=== PATIENT | female | born 1950 | race Caucasian/White ===

== ENCOUNTER → 2017-07-07 | Outpatient (CLI) | payer MEDICARE, OTHER | END | disposition home or self-care (01) | LOC: GMAL 10:46 | PROVIDERS: ATTEND Family Medicine | DX: D51.3 Other dietary vitamin B12 deficiency anemia (principal); Z79.899 Other long term (current) drug therapy; E55.9 Vitamin D deficiency, unspecified ==

== ENCOUNTER → 2017-09-16 | Outpatient (CLI) | payer MEDICARE, OTHER ==
--- NOTE | 2017-09-17 12:08 | MAM ---
EXAM DESCRIPTION: 3D Screening BILATERAL CLINICAL HISTORY: 67 yearsFemaleSCREENING . No complaints. Mother with ovarian cancer. Remote family history of ovarian cancer. Postmenopausal. Has taken HRT 5 or more years ago. Bilateral breast augmentation. COMPARISON: 2-D digital screening bilateral studies 07/27/2016 and 06/03/2015. No prior reports available. Reports from each prior examination also reviewed Report from prior examination reviewed. TECHNIQUE: Bilateral digital screening. CC and MLO projection full-field, 2-D images. Bilateral Demi implant displacement images, CC and MLO full-field projections, 3-D tomosynthesis. CAD not utilized. FINDINGS: The breast parenchymal density pattern is: Heterogeneously dense breast tissue, which may obscure small masses. No skin thickening or nipple retraction bilaterally. Bilateral solitary microcalcifications. Bilateral axillary lymph nodes. Bilateral silicon implants are retroglandular. Some irregularity of the anterior capsules were visualized, stable since the prior study. No focal, stellate mass or density no focal asymmetry, and no suspicious microcalcifications bilaterally Stable mammograms compared to prior study, taking into account differences in mammographic technique. IMPRESSION: BI-RADS CATEGORY: 2 - BENIGN FINDINGS. FOLLOW UP: Routine digital bilateral screening, one year interval from August 2017. Written communication explaining the IMPRESSION and follow-up, will be mailed to the patient and referring health care provider. According to the [employer], yearly mammograms are recommended starting at age 40 and continuing as long as a woman is in good health. Any breast change noted on a breast self-exam should be reported promptly to the patient's healthcare provider. Breast MRI is recommended for women with an approximately 20-25% or greater lifetime risk of breast cancer, including women with a strong family history of breast or ovarian cancer and women who have been treated for Hodgkin's disease. A negative mammographic report should not delay tissue diagnosis in patients with significant clinical history or physical findings. Extremely dense breast tissue limits the sensitivity of digital mammography. Electronically signed by: Edi Sanchez MD 09/17/2017 12:07 PM [facility]
--- NOTE | 2017-09-19 15:46 | US ---
EXAM DESCRIPTION: Carotid Duplex CLINICAL HISTORY: 67 years, Female, CAROTID BRUIT COMPARISON: None. FINDINGS: RIGHT: No significant atherosclerotic plaque. The common carotid, proximal, mid and distal internal carotid and external carotid arteries are patent without elevated systolic velocities. Vertebral artery flow is antegrade. LEFT: No significant atherosclerotic plaque. The common carotid, proximal, mid and distal internal carotid and external carotid arteries are patent without elevated systolic velocities. Vertebral artery flow is antegrade. IMPRESSION: No hemodynamically significant stenosis. Antegrade flow in the vertebral arteries. Electronically signed by: Edi Champagne 09/19/2017 3:44 PM [facility]
--- NOTE | 2017-09-19 16:14 | US ---
EXAM DESCRIPTION: Thyroid CLINICAL HISTORY: NODULE COMPARISON: None. FINDINGS: Sonography was performed of the thyroid gland. The right lobe measures 60 x 22 x 18 mm and the left lobe 59 x 15 x 16 mm. The isthmus measures 2 mm. In the mid right lobe is 22 x 18 x 20 mm nodule. There is a 13 x 12 x 11 mm nodule and a 10 x 8 x 10 mm nodule in the mid left lobe. The nodules are heterogeneous and not calcified and not hypervascular. The thyroid gland is diffusely heterogeneous. No focal calcification is seen. No focus of hypervascularity is identified. IMPRESSION: Diffusely heterogeneous thyroid gland with nodular heterogeneous lesions as described. Electronically signed by: Edi Champagne 09/19/2017 4:13 PM DATA INPUT CLERK
== END ==
LOC: US 09:08
PROVIDERS: ATTEND Family Medicine
DX: Z12.31 Encounter for screening mammogram for malignant neoplasm of breast (principal); R09.89 Other specified symptoms and signs involving the circulatory and respiratory systems; E04.1 Nontoxic single thyroid nodule
CPT/HCPCS: 76536; 77063; 93880; G0202

== ENCOUNTER → 2017-09-30 | Outpatient (CLI) | payer MEDICARE, OTHER ==
--- NOTE | 2017-09-30 16:32 | US ---
EXAM DESCRIPTION: Biopsy of Thyroid: Ultrasound. CLINICAL HISTORY: 67 yearsFemale COMPARISON: Ultrasound of the thyroid 09/16/2017. TECHNIQUE: Procedure was explained to the patient with risks and benefits. The patient gave verbal and written consent. Sterile preparation draping. 1% xylocaine dermal anesthetic. Sterile ultrasound guidance. A total of 4 passes into the right thyroid nodule; 3 needle samplings with a separate 1.5 inch, 25-gauge needle per sample, and 1 aspiration, with a separate 1.5 inch, 25-gauge needle/10-cc syringe set, per aspiration. Each sample was placed on a separate slide and fixed in 95% alcohol container. for later pathologic examination at remote facility. . Aspirate and needle placed in Saccomanno fluid container. Patient tolerated procedure well, with no immediate complications. FINDINGS: Prior to the procedure, the complex nodule with hypoechoic rim again noted in the right lobe with transverse diameter 2 cm. Multiple images demonstrate the echogenic needle within the substance of the nodule during the sampling phase and with aspiration. No evidence of complications after the procedure was completed. IMPRESSION: Successful, ultrasound-guided fine-needle samplings and aspiration of complex nodule in the right lobe of the thyroid gland. There were no immediate complications. Pathology reports are pending. Electronically signed by: Edi Sanchez MD 09/30/2017 4:30 PM DAM TENDER ASSISTANT
== END | disposition home or self-care (01) ==
LOC: US 12:42
PROVIDERS: ATTEND Family Medicine
PROC: 0GBH3ZX Excision of Right Thyroid Gland Lobe, Percutaneous Approach, Diagnostic (ICD-10-PCS; principal; 2017-09-30)
PROC: BG44ZZZ Ultrasonography of Thyroid Gland (ICD-10-PCS; 2017-09-30)
DX: E04.1 Nontoxic single thyroid nodule (principal)

== ENCOUNTER → 2017-11-25 | Outpatient (CLI) | payer MEDICARE, OTHER ==
--- NOTE | 2017-11-25 21:42 | US ---
EXAM DESCRIPTION: Biopsy of Thyroid: Ultrasound. CLINICAL HISTORY: 67 yearsFemale. Complex nodule in the right lobe of the thyroid gland. Previous biopsy specimen nondiagnostic COMPARISON: Ultrasound thyroid 09/16/2017. Ultrasound-guided biopsy of thyroid 09/30/2017. TECHNIQUE: Procedure was explained to the patient with risks and benefits. The patient gave verbal and written consent. Sterile preparation draping. 1% xylocaine dermal anesthetic. Sterile ultrasound guidance. A total of 6 passes into the complex right thyroid nodule; 4 needle samplings with a separate 1.5 inch, 25-gauge needle per sample, and 2 aspirations, with a separate 1.5 inch, 25-gauge needle/10-cc syringe set, per aspiration. Each sample was placed on a separate slide and fixed in 95% alcohol container. For aspirate, Saccomanno fluid drawn into aspirate needle and rinse injected into Saccomanno container. Specimens to be sent for pathologic examination at remote facility. . Patient tolerated procedure well, with no immediate complications. FINDINGS: The complex nodule in the right thyroid lobe is approximately 2 cm transverse measurement, similar to the study in August 2017. Multiple scans show the echogenic needle within the abnormal nodule. Some of the samplings were blood-tinged. The others showed fine particles mixed with clear fluid. Aspirations were predominantly hemorrhage. IMPRESSION: Successful, ultrasound-guided fine-needle sampling and aspiration of abnormal right lobe thyroid nodule. Pathology reports are pending. Electronically signed by: Edi Sanchez MD 11/25/2017 9:41 PM SUPER[employer]OR [employer] Workstation: [id number]
== END ==
LOC: US 09:00
PROVIDERS: ATTEND Family Medicine
DX: E04.1 Nontoxic single thyroid nodule (principal)

== ENCOUNTER → 2018-10-20 | Outpatient (CLI) | payer MEDICARE, OTHER ==
--- NOTE | 2018-10-21 08:49 | MAM ---
EXAM DESCRIPTION: 3D Screening BILATERAL : Digital Mammography. CLINICAL HISTORY: 68 years Female SCREENING . No complaints. No personal or family history of breast cancer. Mother and remote family history of ovarian cancer. Childbirth. Postmenopausal 43 years. HRT 5 or more years ago. Bilateral breast augmentation.. Lifetime risk of developing breast cancer (Tyrer-Cuzick model)(%): 4.0. COMPARISON: Bilateral screening digital breast tomosynthesis 09/16/2017. TECHNIQUE: Bilateral CC and MLO projection full-field images, with Demi Implant Displacement digital tomosynthesis mammographic technique. Bilateral 2-D digital full-field images, MLO and CC projections, non-displaced. CAD Bilateral digital 2-D full-field MLO images. CAD not available for tomosynthesis or 2-D images. FINDINGS: The breast parenchymal density pattern is: Heterogeneously dense breast tissue, which may obscure small masses. No skin thickening or nipple retraction. Bilateral axillary lymph nodes. Bilateral retroglandular saline implants. Minimal irregularity of the anterior contour of the right implant, but stable since the prior study. No new focal, stellate mass or density, focal asymmetry , and no suspicious microcalcifications since the prior study. Stable mammograms compared to prior study. IMPRESSION: Benign exam. BIRAD CATEGORY: 2 BENIGN FINDINGS. RECOMMENDATIONS: FOLLOW UP: Routine digital bilateral mammographic screening, one year interval from September 2018. Written communication explaining the IMPRESSION and follow-up, will be mailed to the patient and referring health care provider. According to the [employer], yearly mammograms are recommended starting at age 40 and continuing as long as a woman is in good health. Any breast change noted on a breast self-exam should be reported promptly to the patient's healthcare provider. Breast MRI is recommended for women with an approximately 20-25% or greater lifetime risk of breast cancer, including women with a strong family history of breast or ovarian cancer and women who have been treated for Hodgkin's disease. A negative mammographic report should not delay tissue diagnosis in patients with significant clinical history or physical findings. Extremely dense breast tissue limits the sensitivity of digital mammography. Electronically signed by: Edi Sanchez MD 10/21/2018 8:48 AM PRINCIPAL CYBER ENGINEER
== END ==
LOC: MAMMO 10:37
PROVIDERS: ATTEND Family Medicine
DX: Z12.31 Encounter for screening mammogram for malignant neoplasm of breast (principal); Z00.01 Encounter for general adult medical examination with abnormal findings; D51.3 Other dietary vitamin B12 deficiency anemia; E78.49 Other hyperlipidemia; R53.83 Other fatigue; E55.9 Vitamin D deficiency, unspecified; Z79.899 Other long term (current) drug therapy

== ENCOUNTER → 2019-11-30 | Outpatient (CLI) | payer MEDICARE, OTHER ==
--- NOTE | 2019-12-04 16:48 | MAM ---
EXAM DESCRIPTION: 3D Screening BILATERAL : Digital Mammography. CLINICAL HISTORY: 69 years Female ANNUAL SCREENING bilateral breast augmentation. No complaints or personal history of breast cancer. Mother with ovarian cancer and women of breast cancer. Remote family history of ovarian cancer bilateral breast cancer. Menarche age 12. Childbirth age 17. Menopause age 25. HRT 5 or more years ago. Lifetime risk of developing breast cancer (Tyrer-Cuzick model)(%): 3.9. COMPARISON: Bilateral screening digital breast tomosynthesis with Demi implant displacement views October 2018 and August 2017.. TECHNIQUE: Bilateral CC and MLO projection full-field images, with Demi Implant Displacement digital tomosynthesis mammographic technique. Bilateral 2-D digital full-field images, MLO and CC projections, non-displaced. Bilateral digital 2-D full-field MLO images. Implant displaced. CAD available for 2-D images. FINDINGS: The breast parenchymal density pattern is: Scattered areas of fibroglandular density. No skin thickening or nipple retraction. Retroglandular implants bilaterally. Capsules appear intact where seen. Bilateral axillary lymph nodes. No new focal, stellate mass or density, focal asymmetry , and no suspicious microcalcifications bilaterally. Stable mammograms compared to prior study. Taking into account, differences in mammographic technique. IMPRESSION: Benign exam. BIRAD CATEGORY: 2 BENIGN FINDINGS. RECOMMENDATIONS: FOLLOW UP: Routine digital bilateral mammographic screening, one year interval from November 2019. Written communication explaining the IMPRESSION and follow-up, will be mailed to the patient and referring health care provider. According to the [employer], yearly mammograms are recommended starting at age 40 and continuing as long as a woman is in good health. Any breast change noted on a breast self-exam should be reported promptly to the patient's healthcare provider. Breast MRI is recommended for women with an approximately 20-25% or greater lifetime risk of breast cancer, including women with a strong family history of breast or ovarian cancer and women who have been treated for Hodgkin's disease. A negative mammographic report should not delay tissue diagnosis in patients with significant clinical history or physical findings. Extremely dense breast tissue limits the sensitivity of digital mammography. Electronically signed by: Edi Sanchez MD 12/04/2019 4:47 PM CONCERT PROMOTER
== END ==
LOC: MAMMO 14:00
PROVIDERS: ATTEND Family Medicine
DX: Z12.31 Encounter for screening mammogram for malignant neoplasm of breast (principal)

== ENCOUNTER → 2020-06-27 | Outpatient (CLI) | payer MEDICARE, OTHER | LOC: GMAL 14:12 | PROVIDERS: ATTEND Family Medicine | DX: E55.9 Vitamin D deficiency, unspecified (principal); Z79.899 Other long term (current) drug therapy; E78.49 Other hyperlipidemia ==

== ENCOUNTER → 2020-12-09 | Outpatient (CLI) | payer MEDICARE ==
--- NOTE | 2020-12-10 16:16 | MAM ---
EXAM DESCRIPTION: 3D Screening BILATERAL : Digital Mammography. CLINICAL HISTORY: 70 years Female ANNUAL SCREENING . Bilateral breast augmentation. Mother with history of ovarian cancer at age 70. Remote family history of ovarian cancer. No family history of breast cancer. Menarche age 13. Childbirth age 25. HRT 5 mm ago. Bilateral breast augmentation. Lifetime risk of developing breast cancer (Tyrer-Cuzick model)(%): 3.7. COMPARISON: Baseline study at this facility. No prior reports available. TECHNIQUE: Bilateral CC and MLO projection full-field images, with Demi Implant Displacement digital tomosynthesis mammographic technique. Bilateral 2-D digital full-field images, MLO and CC projections, non-displaced. Bilateral digital 2-D full-field MLO images. : Implant displaced. CAD available for 2-D images. . Technically difficult study due to torn right rotator cuff which limited positioning for the right breast in the MLO projection. FINDINGS: The breast parenchymal density pattern is: Scattered areas of fibroglandular density. Axillary nodes. Retroglandular placement of breast implants bilaterally. Minimal folding of the capsules with minimal calcification. Stable intramammary node. Solitary microcalcifications. No skin thickening or nipple retraction No new focal, stellate mass or density, focal asymmetry , and no suspicious microcalcifications bilaterally. Stable mammograms compared to prior study. IMPRESSION: Benign exam. BIRAD CATEGORY: 2 BENIGN FINDINGS. RECOMMENDATIONS: FOLLOW UP: Routine digital bilateral mammographic screening, one year interval from November 2020. Written communication explaining the IMPRESSION and follow-up, will be mailed to the patient and referring health care provider. According to the [employer], yearly mammograms are recommended starting at age 40 and continuing as long as a woman is in good health. Any breast change noted on a breast self-exam should be reported promptly to the patient's healthcare provider. Breast MRI is recommended for women with an approximately 20-25% or greater lifetime risk of breast cancer, including women with a strong family history of breast or ovarian cancer and women who have been treated for Hodgkin's disease. A negative mammographic report should not delay tissue diagnosis in patients with significant clinical history or physical findings. Extremely dense breast tissue limits the sensitivity of digital mammography. Electronically signed by: Edi Sanchez MD 12/10/2020 4:15 PM CREDIT CONTROL CLERK
== END ==
LOC: MAMMO 14:13
PROVIDERS: ATTEND Family Medicine
DX: Z12.31 Encounter for screening mammogram for malignant neoplasm of breast (principal)